=== PATIENT | male | born 1940 | race Caucasian/White ===

== ENCOUNTER → 2017-02-06 | Outpatient (CLI) | payer MEDICARE ==
[~2017-02-06] MED LIST: AMOXICILLIN 50500 MG PO; ASPIRIN 81M81 MG/TA2 PO; CIPRO 500MG TA500 MG PO; COZAAR 25MG25 MG/TAB PO; CYANOCOBAL1000 MCG/1 IM; DOXYCYCLINE HY100 M5 PO; LORTAB 5/500 501 TAB PO; LORTAB 7.5/5001 TAB; LORTAB 7.5/5001 TAB PO; LOSARTAN POTASS50 MG PO; MOTRIN600 MG PO; NEO; NEOSPORIN OPHTH10 ML OP; POLY; ZOFRAN4 M1 PO; [UNRECOGNIZED DRUG - OTHER]; [UNRECOGNIZED DRUG - OTHER]
== END ==
LOC: COL.RAD 13:03
DX: Z13.6 Encounter for screening for cardiovascular disorders (principal); F17.200 Nicotine dependence, unspecified, uncomplicated

== ENCOUNTER → 2023-07-08 | Outpatient (CLI) | payer MEDICARE | LOC: CANSCHCLI → COL.CARD 12:06 → COL.RAD 13:15 → COL.CARD 13:15 | DX: R55 Syncope and collapse (principal) | CPT/HCPCS: A9575 ==